=== PATIENT | female | born 1990 | race Caucasian/White ===

== ENCOUNTER → 2019-04-12 | Outpatient (CLI) | payer BC, SELFPAY ==
[2019-04-12 15:15] VITALS: BMI 20.7
[2019-04-12 19:19] LABS: Chlamydia Trachomatis by PCR Negative (Negative); Neisserai gonorrhoeae by PCR Negative (Negative); Probe Check PASS; Sample Adequacy Control PASS; Specimen Processing Control PASS
== END | disposition home or self-care (01) ==
LOC: LABSPEC 17:18
PROVIDERS: Family Provider Family Medicine; PCP Family Medicine; Visit Provider Nurse Practitioner Women's Health
DX: Z11.3 Encounter for screening for infections with a predominantly sexual mode of transmission (principal)
CPT/HCPCS: 87491; 87591

== ENCOUNTER → 2019-11-29 | Outpatient (CLI) | payer BC, SELFPAY ==
[2019-11-29 13:35] VITALS: BMI 20.9
[2019-12-02 03:22] LABS: HPV APTIMA, High Risk Positive (Negative)
== END | disposition home or self-care (01) ==
PROVIDERS: PCP Family Medicine; Referring Provider Nurse Practitioner Women's Health; Visit Provider Nurse Practitioner Women's Health
DX: Z12.4 Encounter for screening for malignant neoplasm of cervix (principal)
CPT/HCPCS: 87624; 88175; G0145

== ENCOUNTER → 2020-02-13 | Outpatient (CLI) | payer BC, SELFPAY ==
[2020-01-03 11:09] VITALS: BMI 20.5
== END | disposition home or self-care (01) ==
LOC: MTDU 11:54
PROVIDERS: PCP Family Medicine; Referring Provider Family Medicine; Visit Provider Family Medicine
DX: Z20.828 Contact with and (suspected) exposure to other viral communicable diseases (principal)
CPT/HCPCS: 87635; G2023; U0003

== ENCOUNTER → 2021-04-30 | Outpatient (CLI) | payer BC, SELFPAY ==
[2021-05-06 14:51] LABS: HPV APTIMA, High Risk Negative (Negative)
== END | disposition home or self-care (01) ==
LOC: LABSPEC 15:42
PROVIDERS: PCP Family Medicine; Visit Provider Nurse Practitioner Women's Health
DX: Z12.4 Encounter for screening for malignant neoplasm of cervix (principal)
CPT/HCPCS: 87624; 88175; G0145

== ENCOUNTER → 2023-04-23 | Outpatient (CLI) | payer OTHER, SELFPAY ==
[2023-04-26 21:07] LABS: Chlamydia By Nucleic Acid AMP Negative (Negative); Gonococcus By Nucleic Acid AMP Negative (Negative)
== END | disposition home or self-care (01) ==
PROVIDERS: PCP Family Medicine; Visit Provider Nurse Practitioner Family
DX: Z20.9 Contact with and (suspected) exposure to unspecified communicable disease (principal)
CPT/HCPCS: 87491; 87591

== ENCOUNTER 2023-06-09 09:59 | Outpatient (CLI) | payer OTHER, SELFPAY ==
--- OUTSIDE RECORDS SUMMARY | 2023-06-09 10:29 | XMS RPT_ITS | CCD ---
Author Name Unknown Address [address] [place] [address] Organization [facility] Care Team Providers Care Cabinetmaker Helper Name Role Phone Parker MACHADO, Carin Foster Unavailable [phone] CRUZ, Abiola Cr Unavailable [phone] Abiola Pruett MD Unavailable [phone] Carin Canales NP Unavailable MIHAELA Clark RN, Rachael Camara Unavailable Unavailabl e Medications Completed/Discontinued Medications Medication Drug Class(es) Dates Sig (Normalized) Sig (Original) levonorgestrel 0.910735 mg/hr intrauterine system (7 sources) Progestin, Progestin-containi ng Intrauterine Device Start: 03-10-2017 MIRENA (52 MG) 20 MCG/24HR IUD use as directed LEVONORGESTREL [id number] Abiola Pruett MD Problems Active Problems Problem Classification Problem Date Documented Date Episodic/Chronic Unclassified (2 sources) Screening for malignant neoplasm of cervix ; Translations: [Encounter for screening for malignant neoplasm of cervix] Onset: 03-10-2017 03-10-2017 Unclassified (2 sources) Gynecologic examination ; Translations: [Encounter for gynecological examination (general) (routine) without abnormal findings] Onset: 03-10-2017 03-10-2017 Past or Other Problems Problem Classification Problem Date Documented Date Episodic/Chronic Immunizations and screening for infectious disease (4 sources) Exposure to sexually transmissible disorder; Translations: [Contact with and (suspected) exposure to infections with a predominantly sexual mode of transmission] Onset: 03-18-2017 03-18-2017 Episodic Results Test Name Value Interpretation Reference Range Facil ity Vital Signs Date Time Vital Sign Value Performing Clinician Faci litnoe 03-18-2017 14:39-0400 Body Temperature 98.6 [degF] Carin Canales [employer] [facility] 03-18-2017 14:39-0400 BP Diastolic 76 mm[Hg] Carin Parkre [employer] [facility] 03-18-2017 14:39-0400 BP Systolic 112 mm[Hg] Carin [place] [employer] [facility] 03-18-2017 14:39-0400 Height 172.72 cm Carin [place] [employer] [facility] 03-18-2017 14:39-0400 Pulse (Heart Rate) 71 /min Carin [place] [employer] [facility] [place] 03-18-2017 14:39-0400 Respiratory Rate 16 /min Carin Parker [employer] [facility] 03-10-2017 08:58-0400 BMI (Body Mass Index) 22.01 kg/m2 Abiola Pruett MD [facility] [place] 03-10-2017 08:58-0400 Body Temperature 97.9 [degF] Abiola Pruett MD [facility] [place] 03-10-2017 08:58-0400 BP Diastolic 63 mm[Hg] Abiola Pruett MD [facility] [place] 03-10-2017 08:58-0400 BP Systolic 98 mm[Hg] Abiola Pruett MD [facility] [place] 03-10-2017 08:58-0400 Height 172.72 cm Abiola Pruett MD [facility] [place] 03-10-2017 08:58-0400 Pulse (Heart Rate) 76 /min Abiola Pruett MD [facility] [place] 03-10-2017 08:58-0400 Respiratory Rate 16 /min Abiola Pruett MD [facility] [place] 03-10-2017 08:58-0400 Weight 65.68 kg Abiola Pruett MD [facility] [place] Procedures Date Procedure Procedure Detail Performing Clinician Start: 03-18-2017 End: 03-24-2017 *HECAB Hepatitis C Antibody Carin Canales [employer] Work Phone: Start: 03-18-2017 End: 03-22-2017 *HIV antibody Carin Canales [employer] Work Phone: Start: 03-18-2017 End: 03-22-2017 Herpes simplex virus 1+2 IgG Ab [Units/volume] in Serum Carin Canales [employer] Work Phone: Start: 03-18-2017 End: 03-30-2017 Reagin Ab [Presence] in Serum by RPR Carin Canales [employer] Work Phone: Start: 03-10-2017 Gynecologic examination [employer] annual e xam Abiola Pruett MD Start: 03-10-2017 Screening for malign ant neoplasm of cervix Screening for cervical cancer Abiola Pruett MD Plan of Treatment Date Care Activity Detail Author Start: 03-18-2017 End: 03-18-[address] [facility] Start: 03-18-2017 End: 03-19-2017 *GC/Chlamydia [facility] Start: 03-18-2017 End: 03-24-2017 *HECAB Hepatitis C Antibody *HECAB Hepatitis C Antibody [facility] Start: 03-18-2017 End: 03-22-2017 *HIV antibody *HIV antibody [facility] Start: 03-18-2017 End: 03-22-2017 Herpes simplex virus 1+2 IgG Ab [Units/volume] in Serum *HS12G Herpes Simplex Antibody [facility] Start: 03-18-2017 End: 03-30-2017 Reagin antibody presence *RPR [facility] Start: 03-10-2017 End: 03-10-[address] [facility] Additional Source Comments FOR RECORDS PERTAINING TO PATIENTS WHO ARE OR HAVE BEEN ENROLLED IN A CHEMICAL DEPENDENCY/SUBSTANCEABUSE PROGRAM, SOME INFORMATION MAY BE OMITTED. This clinical summary was aggregated from multiple sources. Caution should be exercised in using it in the provision of clinical care. This summary normalizes information from multiple sources, and as a consequence, information in this document may materially change the coding, format and clinical context of patient data. In addition, data may be omitted in some cases. CLINICAL DECISIONS SHOULD BE BASED ON THE PRIMARY CLINICAL RECORDS. [facility] [employer] [facility]. provides no warranty or guarantee of the accuracy or completeness of information in this document.
[2023-06-09 10:52] LABS: Vitamin D,25 Hydroxy 46.4 ng/mL
[2023-06-09 11:02] LABS: T4 Free Direct 0.99 ng/dL (0.76-1.46); Thyroid Stim Hormone (TSH) 1.31 uIU/mL (0.358-3.74)
[2023-06-10 04:07] LABS: Thyroid Peroxidase AB 13 IU/mL (0-34)
[2023-06-13 17:07] LABS: HPV APTIMA, High Risk Negative (Negative)
== END 2023-06-09 23:59 | disposition home or self-care (01) ==
PROVIDERS: PCP Family Medicine; Referring Provider Nurse Practitioner Women's Health; Visit Provider Nurse Practitioner Women's Health
DX: N76.0 Acute vaginitis (principal); L65.9 Nonscarring hair loss, unspecified; Z13.29 Encounter for screening for other suspected endocrine disorder
CPT/HCPCS: 36415; 82306; 84439; 84443; 86376; 87070; 87205; 87624; 88175; G0145